=== PATIENT | male | born 1955 | race American Indian/Alaskan Native ===

== ENCOUNTER 2017-09-04 12:52 | Emergency (ER) | payer MEDICARE ==
[2017-09-04 14:01] LABS: Basophils # (Auto) 0.1 K/mm3 (0.0-0.1); Basophils % (Auto) 1.1 % (0.0-1.8); Eosinophils # (Auto) 0.2 K/mm3 (0.0-0.4); Eosinophils % (Auto) 1.4 % (0.0-4.3); Hematocrit 37.3 % (35.5-45.6); Hemoglobin 12.2 gm/dl (11.8-15.2); Lymphocytes # (Auto) 1.1 K/mm3 (1.2-5.4); Lymphocytes % (Auto) 9.3 % (13.4-35.0); Mean Corpuscular HGB Conc 33 % (32-34); Mean Corpuscular Hemoglobin 28 pg (28-32); Mean Corpuscular Volume 84 fl (84-94); Monocytes # (Auto) 0.5 K/mm3 (0.0-0.8); Monocytes % (Auto) 4.1 % (0.0-7.3); Platelet Count 259 K/mm3 (140-440); Red Blood Count 4.44 M/mm3 (3.65-5.03); Red Cell Distribution Width 13.1 % (13.2-15.2)
[2017-09-04 14:12] LABS: INR 1.54 (0.87-1.13)
[2017-09-04 14:13] LABS: Partial Thromboplastin Time 37.1 Sec. (24.2-36.6)
[2017-09-04 14:20] LABS: BUN/Creatinine Ratio 15; Blood Urea Nitrogen 18 mg/dL (9-20); Calcium 8.9 mg/dL (8.4-10.2); Hemolysis Index 14
--- NOTE | 2017-09-04 15:18 | XRay Report ---
FINAL REPORT EXAM: XR CHEST 1V AP HISTORY: Cough TECHNIQUE: Frontal chest radiograph. PRIORS: CTA of the chest from 08/23/2017. FINDINGS: Prominent appearance of the aortic arch is noted. Note that this appearance is similar to venereal disease control head radiograph from the prior CTA of the chest. No focal consolidation. No pleural effusion. No pneumothorax. No acute osseous abnormality. IMPRESSION: No acute cardiopulmonary process. Similar prominent appearance of the aortic arch. Note that no aneurysm was found on the prior CT of the chest.
--- NOTE | 2017-09-04 15:25 | Emergency Department Report ---
ED General Adult HPI - General Chief complaint: Extremity Injury, Lower Stated complaint: LEFT LEG PAIN Time Seen by Provider: 09/04/17 13:45 Source: patient, EMS, old records reviewed Mode of arrival: Stretcher Limitations: Physical Limitation - History of Present Illness Initial comments: Mr. 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 He was recently admitted to this Hospital this month for pulmonary embolism. He is taking Eliquis. EMS arrived on scene to find a 62-year-old male complaining of left leg pain. He awakened this morning with the pain. He rates it 10 on 10 on the pain scale. He lives with his daughter Jody. [phone]. Mr. Hernandez told me that his entire left side hurts including his arm and leg. He denies trauma. Denies fall. He denies chest pain. Denies shortness of breath. Denies fever. Denies cough. - Related Data Home Medications Medication Instructions Recorded Confirmed Last Taken AtorvaSTATin [Lipitor] 40 mg PO DAILY 08/23/17 08/23/17 08/23/17 Clopidogrel Bisulfate [Plavix] 75 mg PO DAILY 08/23/17 08/23/17 08/23/17 amLODIPine [Norvasc] 5 mg PO DAILY 08/23/17 08/23/17 08/23/17 glipiZIDE [Glipizide] 5 mg PO BID 08/23/17 08/23/17 08/23/17 Previous Rx's Medication Instructions Recorded Last Taken Type Apixaban [Eliquis] 5 mg PO BID #74 tablet 08/25/17 Unknown Rx Azithromycin [Zithromax Z-SUSAN] 250 mg PO DAILY #6 tablet 08/25/17 Unknown Rx guaiFENesin [Cough Syrup] 100 mg PO Q4H PRN #1 bottle 08/25/17 Unknown Rx HYDROcodone/APAP 5-325 [Manati 1 each PO Q6HR PRN #10 tablet 09/04/17 Unknown Rx 5/325] Allergies Allergy/AdvReac Type Severity Reaction Status Date / Time No Known Allergies Allergy Unverified 08/23/17 14:54 ED Review of Systems ROS: Stated complaint: LEFT LEG PAIN Other details as noted in HPI Comment: All other systems reviewed and negative Constitutional: denies: fever, malaise Respiratory: denies: cough Cardiovascular: denies: chest pain ED Past Medical Hx - Past Medical History Hx Hypertension: Yes Hx CVA: Yes Hx Congestive Heart Failure: No Hx Diabetes: Yes Hx Asthma: No Hx COPD: No - Social History Smoking Status: Never Smoker Substance Use Type: None - Medications Home Medications: Home Medications Medication Instructions Recorded Confirmed Last Taken Type AtorvaSTATin [Lipitor] 40 mg PO DAILY 08/23/17 08/23/17 08/23/17 History Clopidogrel Bisulfate [Plavix] 75 mg PO DAILY 08/23/17 08/23/17 08/23/17 History amLODIPine [Norvasc] 5 mg PO DAILY 08/23/17 08/23/17 08/23/17 History glipiZIDE [Glipizide] 5 mg PO BID 08/23/17 08/23/17 08/23/17 History Apixaban [Eliquis] 5 mg PO BID #74 tablet 08/25/17 Unknown Rx Azithromycin [Zithromax Z-SUSAN] 250 mg PO DAILY #6 tablet 08/25/17 Unknown Rx guaiFENesin [Cough Syrup] 100 mg PO Q4H PRN #1 bottle 08/25/17 Unknown Rx HYDROcodone/APAP 5-325 [Manati 1 each PO Q6HR PRN #10 tablet 09/04/17 Unknown Rx 5/325] ED Physical Exam - General Limitations: Physical Limitation General appearance: alert, in no apparent distress - Head Head exam: Present: atraumatic, normocephalic - Eye Eye exam: Present: normal appearance - ENT ENT exam: Present: normal orophraynx, mucous membranes moist - Neck Neck exam: Present: normal inspection. Absent: meningismus - Respiratory Respiratory exam: Present: normal lung sounds bilaterally. Absent: respiratory distress, wheezes, rales, rhonchi - Cardiovascular Cardiovascular Exam: Present: regular rate, normal rhythm, normal heart sounds. Absent: tachycardia, systolic murmur, diastolic murmur, rubs, gallop - GI/Abdominal GI/Abdominal exam: Present: soft, normal bowel sounds. Absent: distended, tenderness - Rectal Rectal exam: Present: deferred - Extremities Exam Extremities exam: Present: other (contracted left upper extremity, stiff left lower leg, no edema no deformity +2 DP) - Back Exam Back exam: Present: normal inspection - Neurological Exam Neurological exam: Present: alert, oriented X3 - Psychiatric Psychiatric exam: Present: normal affect, normal mood - Skin Skin exam: Present: warm, dry, intact, normal color. Absent: rash ED Course Vital Signs 09/04/17 13:27 Temperature 97.9 F Pulse Rate 109 H Respiratory 18 Rate Blood Pressure 125/82 O2 Sat by Pulse 97 Oximetry ED Medical Decision Making - Lab Data Result diagrams: 09/04/17 13:38 09/04/17 13:38 Laboratory Results - last 24 hr 09/04/17 09/04/17 09/04/17 13:38 13:38 13:38 WBC 11.7 H RBC 4.44 Hgb 12.2 Hct 37.3 MCV 84 MCH 28 MCHC 33 RDW 13.1 L Plt Count 259 Lymph % (Auto) 9.3 L [place] % (Auto) 4.1 Eos % (Auto) 1.4 Baso % (Auto) 1.1 Lymph # 1.1 L [place] # 0.5 Eos # 0.2 Baso # 0.1 Seg Neutrophils % 84.1 H Seg Neutrophils # 9.9 H PT 19.4 H INR 1.54 H APTT 37.1 H Sodium 136 L Potassium 4.0 Chloride 100.8 Carbon Dioxide 22 Anion Gap 17 BUN 18 Creatinine 1.2 Estimated GFR > 60 BUN/Creatinine Ratio 15 Glucose 167 H Calcium 8.9 Vital Signs - 24 hr 09/04/17 09/04/17 09/04/17 13:27 13:30 13:46 Temperature 97.9 F Pulse Rate 109 H 102 H 102 H Respiratory 18 13 16 Rate Blood Pressure 125/82 116/88 128/81 O2 Sat by Pulse 97 Oximetry 09/04/17 09/04/17 09/04/17 14:00 15:13 15:16 Temperature Pulse Rate 107 H 98 H 92 H Respiratory 16 11 L 13 Rate Blood Pressure 128/81 122/78 122/78 O2 Sat by Pulse Oximetry - Medical Decision Making Mr. Cardona presents with reported left side pain. No fracture. No DVT. intact pulse. Manati given in ED. Rx: norco dc'd home Critical care attestation.: If time is entered above; I have spent that time in minutes in the direct care of this critically ill patient, excluding procedure time. ED Disposition Clinical Impression: Left leg pain, Left arm pain Disposition: TO HOME OR SELFCARE Is pt being admited?: No Does the pt Need Aspirin: No Condition: Stable Instructions: Leg Cramps (ED), Muscle Cramp (ED) Prescriptions: HYDROcodone/APAP 5-325 [Manati 5/325] 1 each PO Q6HR PRN #10 tablet PRN Reason: Pain Time of Disposition: 15:30
[2017-09-04] MEDS ORDERED: NORCO 5/325 PO ONE (15:28)
--- NOTE | 2017-09-04 15:56 | XRay Report ---
FINAL REPORT EXAM: XR TIBIA FIBULA 2V LT HISTORY: left leg pain TECHNIQUE: AP and lateral radiographs of the left tibia and fibula. PRIORS: None. FINDINGS: No fracture. No dislocation. There is diffuse osteopenia. There is mild soft tissue swelling surrounding the left ankle. No bony erosion or periosteal reaction. No radiopaque foreign body. Vascular calculi are seen. IMPRESSION: Soft tissue swelling surrounding the left ankle. No acute osseous abnormality.
[2017-09-04 18:53] VITALS: BP 114/60
--- NOTE | 2017-09-06 07:35 | XRay Report ---
FINAL REPORT EXAM: XR FEMUR 2+V LT HISTORY: Left leg pain. TECHNIQUE: Four total radiographs of the left femur were obtained. No prior studies are available for comparison. FINDINGS: There is no fracture or dislocation. There is mild diffuse left hip joint space narrowing. Mild diffuse enthesopathic changes are seen at the left greater trochanter and left inferior pubic ramus. There is suggestion of mild generalized osteopenia. No other discrete osseous abnormality is seen. Moderate vascular calcifications are seen in the left thigh. IMPRESSION: No fracture or dislocation.
== END 2017-09-04 19:03 | disposition home or self-care (01) ==
LOC: ED 12:52
DX: M79.605 Pain in left leg (principal); M79.602 Pain in left arm; I10 Essential (primary) hypertension; E11.9 Type 2 diabetes mellitus without complications; Z86.73 Personal history of transient ischemic attack (TIA), and cerebral infarction without residual deficits
CPT/HCPCS: 36415; 71045; 80048; 85025; 85610; 85730; 99284